=== PATIENT | male | born 1975 | race Two or more races ===

== ENCOUNTER 2022-01-19 16:57 | Emergency (ER) | payer MEDICAID, OTHER ==
[~2022-01-19] VITALS: Ht 182.9 cm; Wt 110.2 kg
[2022-01-19 18:36] VITALS: BP 134/82
[2022-01-19] MEDS ORDERED: methylPREDNISolone SOD SUCC 125 MG/2 ML VL IM ONE (19:00)
[2022-01-19] MEDS ORDERED: ALBUTEROL SULF 2.5 MG/0.5ML(0.5%) NEB SOLN NEB ONE (19:00)
[2022-01-19] MEDS ORDERED: MONT-8 PO (19:05)
[2022-01-19] MEDS ORDERED: ALBU108A5 IN (19:05)
== END 2022-01-19 19:15 | disposition home or self-care (01) ==
LOC: ER 16:57
DX: J45.901 Unspecified asthma with (acute) exacerbation (principal); Z76.0 Encounter for issue of repeat prescription; Z88.0 Allergy status to penicillin
CPT/HCPCS: 94640; 96372; 99283; J2930